=== PATIENT | male | born 1995 | race Caucasian/White ===

== ENCOUNTER 2016-07-27 11:43 | Emergency (ER) | payer BC ==
[2016-07-27 11:48] VITALS: PULSE 70
--- NOTE | 2016-07-27 12:09 | EDPHY ---
H & P Time Seen by Provider: 07/27/16 12:03 HPI/ROS: CHIEF COMPLAINT: Knee pain. HISTORY OF PRESENT ILLNESS: The patient is a 20-year-old male who presents after falling while skiing yesterday at [employer]. When he landed his knees "bent outward" and he has had pain in them since. He was ambulatory after the fall, but with difficulty. The pain is worsened with movement and is worse today than yesterday. He did not hit his head or lose consciousness. He denies other complaints. REVIEW OF SYSTEMS: ROS: No numbness, weakness, excessive bleeding, syncopal episode, other injury. Past Medical/Surgical History: Denies. Social History: Nonsmoker, [employer] student. Smoking Status: Never smoked Physical Exam: General Appearance: Alert, no distress Skin: No lacerations, no abrasions Extremities:right knee: tenderness and swelling to the medial and lateral aspects of the knee, no pain with valgus/varus stress, no ACL/PCL laxity and no joint effusion. Left knee: Normal inspection, tenderness over the medial joint line, pain varus stress to the knee, no joint effusion Neurological: Motor and sensory intact Constitutional: Initial Vital Signs Temperature (C) 36.4 C 07/27/16 11:44 Heart Rate 70 07/27/16 11:44 Respiratory Rate 17 07/27/16 11:44 Blood Pressure 114/60 07/27/16 11:44 O2 Sat (%) 98 07/27/16 11:44 O2 Delivery Mode Room Air Allergies/Adverse Reactions: No Known Allergies Allergy (Verified 07/27/16 11:43) Home Medications: Medication Instructions Recorded NK [No Known Home Meds] 07/14/14 Medical Decision Making - Diagnostics Imaging: Right knee x-ray reviewed by me reveals no fracture. Left knee x-ray reviewed by me reveals no fracture. ED Course/Re-evaluation: Patient presents with bilateral knee pain, right greater than left after a fall yesterday. Bilateral knee x-rays ordered. 1258: Reassessed patient. Discussed results of x-rays. Suspect that he has a MCL tear of the left knee and muscular strain of the right knee. Given that he has bilateral knee injuries, he does not feel that he will be able to safely ambulate using crutches or with a knee immobilizer. He is able to ambulate with a steady gait without assistance. Ibuprofen instructions given. Departure - Departure Disposition: Home, Routine, Self-Care Clinical Impression: Knee sprain, bilateral Condition: Good Instructions: Knee Sprain (ED) Additional Instructions: Take 600mg Ibuprofen every 6-8 hours as needed for pain. If symptoms are not improving in the next 5-7 days, call Dr. Packer, orthopedics (or your own orthopedist) and set up a follow up appointment. Return to the emergency department if you experience serious worsening of condition. Referrals: Arvind Packer MD [Medical Doctor] - As per Instructions Stand Alone Forms: School Excuse Report Scribed for: Johanne Woods Report Scribed by: Filiberto Mccabe Date of Report: 07/27/16 Time of Report: 12:04 Physician Review and Approval Statement: 07/27/16 12:11 Portions of this note were transcribed by a medical educator. I personally performed a history, physical exam, medical decision making, and confirmed accuracy of information the transcribed note.
[2016-07-27 13:19] VITALS: BP 118/68; RESP 14; TEMP 97.9; O2SAT 94
--- NOTE | 2016-07-27 13:26 | DX ---
Right Knee, Four Views 12:37 p.m. Indication: Injured knee skiing. Technique: AP, obliques, and lateral views. Comparison: Contralateral left knee performed same time. Findings: The normally mineralized bones are anatomically aligned. No fracture, joint space abnormali ty, or underlying bony lesion. The patella is normally aligned on the Merchant view. Small suprapatel lar effusion. Impression: Small effusion. No acute fracture.
--- NOTE | 2016-07-27 13:45 | DX ---
Left Knee, Four Views Indication: Pain.. Technique: AP, oblique, lateral, and Merchant views. Findings: The normally mineralized bones are anatomically aligned. No fracture, joint space abnormali ty, or underlying bony lesion. The patella is normally aligned on the Merchant view. No effusion. Impression: Negative. No acute fracture or effusion.
== END 2016-07-27 13:19 | disposition home or self-care (01) ==
DX: S83.91XA Sprain of unspecified site of right knee, initial encounter (principal); S83.92XA Sprain of unspecified site of left knee, initial encounter; V00.321A Fall from snow-skis, initial encounter; Y92.89 Other specified places as the place of occurrence of the external cause; Y93.23 Activity, snow (alpine) (downhill) skiing, snowboarding, sledding, tobogganing and snow tubing

== ENCOUNTER 2017-06-03 10:37 | Emergency (ER) | payer BC ==
[2017-06-03 11:13] LABS: COLOR YELLOW; LEUKOCYTE ESTERASE,URINE NEGATIVE (NEGATIVE); NITRITE,URINE NEGATIVE (NEGATIVE)
[2017-06-03 11:26] LABS: MUCUS TRACE /lpf (NONE-1+)
--- NOTE | 2017-06-03 11:28 | EDPHY ---
General Narrative: CHIEF COMPLAINT: Right testicle pain HISTORY OF PRESENT ILLNESS: Patient accompanied by his father bedside. Patient complains of 2 days history of right-sided testicular pain. This was gradual onset after wrestling. It is moderate to severe. Worse with coughing and Valsalva. Mild at rest. Does not radiate. No nausea. Some mild flank pain. No urinary complaints. No urethral discharge. He is sexually active but no activity in the past 2 months. No abdominal pain. No other associated complaints or modifying factors. REVIEW OF SYSTEMS: Ten systems reviewed and are negative unless otherwise noted in the HPI PCP: None locally SPECIALISTS: None PAST MEDICAL HISTORY: Denies any medical history SOCIAL HISTORY: Nonsmoker. Occasional alcohol. No drug use. FAMILY HISTORY: Noncontributory EXAMINATION General Appearance: Alert, no distress Head: normocephalic, atraumatic Eyes: Pupils equal and round, no conjunctival pallor or injection ENT, Mouth: Mucous membranes moist Cardiovascular: Regular rate and rhythm. No murmur. Symmetric DP pulses 2+. Gastrointestinal: Abdomen is soft and nontender. No tympany. No rigidity. No distention. : Circumcised. No urethral drainage. No balanitis. Cremasteric intact symmetrically. Enlarged right testicle tender palpation. No crepitus or subcutaneous emphysema. No evidence of necrosis. Skin: Warm and dry, no rash. No cellulitis. No abscess. Extremities: Nontender, no pedal edema Psychiatric: Mood and affect normal DIFFERENTIAL DIAGNOSES: Including but not limited to testicular torsion, orchitis, epididymitis, hydrocele, varicocele MDM: 11:25 a.m. Right testicular pain. Unable to examine the patient as he already is having his ultrasound performed. I will return shortly. 11:50 a.m. Notified by radiologist Dr. Dalton. Ultrasound of the testicles reveals evidence of right orchitis. There is no abscess. No torsion with good flow bilaterally. 12:00 p.m Likely acute epididymal orchitis with no evidence of torsion on ultrasound. Urinalysis is negative. Urine microscopy negative. I have ordered a urine culture. Urinalysis for gonorrhea chlamydia is pending. I will treat him with IM Rocephin and doxycycline at home. I referred him to a urologist for definitive care. We discussed ED precautions. We discussed short course of pain medication. We discussed scrotal elevation and rest. We also discussed anti-inflammatories and ice. He is comfortable this plan. He is discharged home in stable condition with ED precautions. SUPERVISION: Patient was independently examined, but I discussed the case with my secondary supervising physician Dr. Edwards - Diagnostics Imaging Results: Imaging Impressions Testicular Ultrasound 06/03/17 11:08 Impression: 1. Right testicular orchitis with increased heterogenous hypervascular testicle. 2. Normal left testis. 3. No testicular torsion, focal abscesses, or hydrocele. Findings and recommendations discussed with Emergency Department physician, Jose Coello at 1155 hour, 06/03/2017. Final report concurs with initial preliminary interpretation. - History Smoking Status: Never smoked - Objective Vital Signs: Initial Vital Signs Temperature (C) 98.2 F 06/03/17 10:39 Heart Rate 78 06/03/17 10:39 Respiratory Rate 17 06/03/17 10:39 Blood Pressure 136/82 H 06/03/17 10:39 O2 Sat (%) 98 06/03/17 10:39 O2 Delivery Mode Room Air Allergies/Adverse Reactions: No Known Allergies Allergy (Verified 06/03/17 10:39) Home Medications: Medication Instructions Recorded Doxycycline Hyclate 100 mg PO BID #28 tab 06/03/17 oxyCODONE HCL/ACETAMINOPHEN 1 each PO Q4-6PRN PRN #15 tablet 06/03/17 [Percocet 5-325 mg Tablet] Laboratory Results: 06/03/17 06/03/17 06/03/17 10:55 10:55 10:55 Urine Color YELLOW Urine Appearance CLEAR Urine pH 5.0 (5.0-7.5) Ur Specific [place] 1.016 (1.002-1.030) Urine Protein NEGATIVE (NEGATIVE) Urine Ketones NEGATIVE (NEGATIVE) Urine Blood NEGATIVE (NEGATIVE) Urine Nitrate NEGATIVE (NEGATIVE) Urine Bilirubin NEGATIVE (NEGATIVE) Urine Urobilinogen NEGATIVE EU EU (0.2-1.0) Ur Leukocyte Esterase NEGATIVE (NEGATIVE) Urine RBC Cancelled NONE SEEN /hpf /hpf (0-3) Urine WBC Cancelled NONE SEEN /hpf /hpf (0-3) Ur Epithelial Cells Cancelled NONE SEEN /lpf /lpf (NONE-1+) Ur Renal Epithelial Cell Cancelled Urine Crystals Cancelled Ammonium Urate Crystals Cancelled Calcium Carbonate Cryst Cancelled Calcium Phosphate Cryst Cancelled Calcium Oxalate Crystal Cancelled Leucine Crystals Cancelled Cystine Crystals Cancelled Uric Acid Crystals Cancelled Triple Phos Crystals Cancelled Sulfonamide Crystals Cancelled Cholesterol Crystals Cancelled Tyrosine Crystals Cancelled Bilirubin Crystals Cancelled Amorphous Sediment Cancelled Urine Bacteria Cancelled Epithelial Casts Cancelled Fatty Casts Cancelled Hyaline Casts Cancelled Granular Casts Cancelled Waxy Casts Cancelled Broad Casts Cancelled RBC Casts Cancelled WBC Casts Cancelled Urine Mucus Cancelled TRACE /lpf /lpf (NONE-1+) Urine Trichomonas Cancelled Urine Yeast Cancelled Urine Sperm Cancelled Ur Oval Fat Bodies Cancelled Ur Free Fat Droplets Cancelled Ur Culture Indicated? NOT INDICATED (NI) Urine Glucose NEGATIVE (NEGATIVE) Urine Comment Cancelled C.trachomatis RNA (TMA) Pending N.gonorrhoeae RNA (TMA) Pending Medications Given: Discontinued Medications Ceftriaxone Sodium (Rocephin Im Syringe) 250 mg IM EDNOW ONE PRN Reason: Protocol Stop: 06/03/17 12:04 Last Admin: 06/03/17 13:17 Dose: 250 mg Oxycodone/Acetaminophen (Percocet 5/325) 2 tab PO EDNOW ONE Stop: 06/03/17 12:03 Last Admin: 06/03/17 12:30 Dose: 2 tab Departure - Departure Disposition: Home, Routine, Self-Care Clinical Impression: Orchitis and epididymitis Condition: Good Instructions: Epididymo-Orchitis (ED), Testicle Pain (ED), Orchitis (ED) Additional Instructions: 1. Medications as prescribed as discussed 2. Recommend wearing briefs for scrotal elevation 3. Light activity as discussed as tolerated 4. Contact Urology for definitive outpatient care 5. ED precautions as discussed Referrals: Dorothy Noel MD [Medical Doctor] - As per Instructions Stand Alone Forms: School Excuse Prescriptions: Doxycycline Hyclate 100 mg PO BID #28 tab oxyCODONE HCL/ACETAMINOPHEN [Percocet 5-325 mg Tablet] 1 each PO Q4-6PRN PRN # 15 tablet PRN Reason: Pain, Breakthrough
[2017-06-03 11:30] LABS: RBC,URINE NONE SEEN /hpf (0-3); WBC,URINE NONE SEEN /hpf (0-3)
[2017-06-03] MEDS ORDERED: OXYCODONE/APAP 5/325 TAB PO ONE (12:02)
[2017-06-03] MEDS ORDERED: CEFTRIAXONE IM 350 MG/ML SYRINGE IM ONE (12:03)
[2017-06-03 12:34] VITALS: BP 139/84; RESP 16
[2017-06-03 13:37] VITALS: PULSE 72; TEMP 98.2; O2SAT 97
[2017-06-04 10:14] LABS: CHLAMYDIA AMPLIFICATION GENPRB NEGATIVE (NEGATIVE)
== END 2017-06-03 13:37 | disposition home or self-care (01) ==
DX: N45.3 Epididymo-orchitis (principal)
CPT/HCPCS: J0696